=== PATIENT | female | born 1965 | race Caucasian/White ===

== ENCOUNTER 2022-02-18 16:05 | Emergency (ER) | payer MEDICAID ==
[~2022-02-18] VITALS: Ht 167.6 cm; Wt 59.0 kg
[2022-02-18 16:31] VITALS: BP 123/81
[2022-02-18 17:04] LABS: Urine Amorphous Crystal FEW /hpf (None Seen); Urine Bacteria NONE SEEN /hpf (None Seen); Urine Blood Negative /uL (Negative); Urine Specific Gravity 1.021 (1.001-1.035); Urine WBC <1 /hpf (0 - 5)
[2022-02-18 17:37] LABS: Basophils # (auto) 0.1 10 ^3/uL (0-0.2); Basophils % (auto) 0.5 % (0.0-2.0); Eosinophils # (auto) 0 10 ^3/uL (0-0.8); Eosinophils % (auto) 0.3 % (0.0-7.0); Hematocrit 43.7 % (36.0-46.0); Hemoglobin 14.2 g/dL (12.2-16.2); Lymphocytes # (auto) 1.1 10 ^3/uL (0.4-5.4); Lymphocytes % (auto) 8.5 % (10.0-50.0); Mean Corpuscular Hemoglobin 29.7 pg (28.0-32.0); Mean Corpuscular Hgb Conc. 32.6 g/dL (32.0-36.0); Monocytes # (auto) 0.6 10 ^3/uL (0-1.3); Monocytes % (auto) 4.9 % (0.0-12.0); Neutrophils # (auto) 10.7 10 ^3/uL (1.6-8.6); Neutrophils % (auto) 85.8 % (37.0-80.0); Nucleated Red Blood Cells % 0.1 %; Red Cell Distribution Width 13.1 % (11.8-14.3); White Blood Cell 12.5 10^3/uL (4.4-10.8)
[2022-02-18 17:48] LABS: Albumin 3.9 g/dL (3.4-5.0); Calcium 8.9 mg/dL (8.5-10.1); Potassium 3.4 mmol/L (3.5-5.1)
[2022-02-18 17:53] LABS: BUN/Creatinine Ratio 10.5; Bilirubin, Total 0.8 mg/dL (0.2-1.0); Total Protein 7.9 g/dL (6.4-8.2)
[2022-02-18] MEDS ORDERED: ALUM & MAG HYDROX-SIMETH LIQ(MAALOX) 30 ML PO ONE (18:45)
[2022-02-18] MEDS ORDERED: FAMOTIDINE (10MG/ML) 2ML VL IV ONE (18:45)
[2022-02-18] MEDS ORDERED: ONDANSETRON HCL 4 MG/2 ML VIAL IV ONE (18:45)
[2022-02-18] MEDS ORDERED: LIDOCAINE VISCOUS 2% 15ML UD PO ONE (18:45)
[2022-02-18] MEDS ORDERED: IOHEXOL 350 MG/ML 100ML IJ ONE (19:15)
[2022-02-18] MEDS ORDERED: ONDANSETRON ODT 4 MG TAB PO ONE (20:45)
[2022-02-18] MEDS ORDERED: FAMOTIDINE 20 MG TAB PO ONE (21:00)
== END 2022-02-18 22:48 | disposition left against medical advice (07) ==
LOC: ER 16:05 → EDBD 16:05 → ER 22:48
DX: K52.9 Noninfective gastroenteritis and colitis, unspecified (principal); I10 Essential (primary) hypertension; R07.89 Other chest pain
CPT/HCPCS: 36415; 71045; 74177; 80053; 81001; 81025; 83605; 83690; 84484; 84702; 85025; 93005; 99285; Q9967